=== PATIENT | male | born 1975 | race Hispanic/Latino ===

== ENCOUNTER 2017-06-14 05:55 | Day surgery (SDC) | payer OTHER ==
[2017-06-10 13:56] VITALS: BP 144/81
[~2017-06-14] VITALS: Ht 172.7 cm; Wt 139.2 kg
[2017-06-14] VITALS (13 sets, daily range): BP systolic 115–145; BP diastolic 73–92
[2017-06-14] MEDS: CEFAZOLIN SODIUM 1 GM VIAL IVP SCH ×2 (05:00→07:40)
[~2017-06-14 05:55] MED LIST: ATORVASTATIN PO; BUPROPION PO; METF500T6 PO
[2017-06-14] MEDS ORDERED: SODIUM CHLORIDE 0.9% 1000ML 1,000 ML IV ONE (06:37)
[2017-06-14] MEDS ORDERED: LIDOCAINE HCL-MPF 0.5% 50ML VIAL IJ ONE (06:52)
[2017-06-14] MEDS ORDERED: GLYCOPYRROLATE 0.2 MG/ML 5 ML VIAL ONE (06:54)
[2017-06-14] MEDS ORDERED: DEXAMETHASONE SOD PHOSPHATE 10MG/ML 1ML VIAL ONE (06:54)
[2017-06-14] MEDS ORDERED: PROPOFOL 10 MG/ML 20ML VIAL IV ONE (06:54)
[2017-06-14] MEDS ORDERED: LIDOCAINE PF 2% 5ML ABBOJECT ONE (06:54)
[2017-06-14] MEDS ORDERED: MIDAZOLAM HCL 1 MG/ML 2ML VIAL ONE ×2 (06:54→07:51)
[2017-06-14] MEDS ORDERED: FENTANYL CITRATE PF 50 MCG/1 ML 2ML VIAL ONE ×3 (06:55→08:15)
[2017-06-14] MEDS ORDERED: PHENYLEPHRINE HCL 10 MG/ML 1ML VIAL IV ONE (08:03)
== END 2017-06-14 10:00 | disposition home or self-care (01) ==
LOC: DAH 05:55
PROVIDERS: ATTEND Neurological Surgery
DX: G56.01 Carpal tunnel syndrome, right upper limb (principal); E66.01 Morbid (severe) obesity due to excess calories; E11.9 Type 2 diabetes mellitus without complications
CPT/HCPCS: 64721; 82948 ×2; 93005; A4218; J0690; J1100; J2001; J2250 ×2; J2370; J2704; J3010 ×3; J3490 ×2; J7030

== ENCOUNTER → 2017-12-28 | Outpatient (CLI) | payer OTHER ==
[~2017-12-28] MED LIST changes: +METF-444 PO; -METF500T6 PO
== END | disposition home or self-care (01) ==
LOC: DTH 08:38
PROVIDERS: ATTEND Surgery
DX: E11.9 Type 2 diabetes mellitus without complications (principal); E66.09 Other obesity due to excess calories
CPT/HCPCS: 97803

== ENCOUNTER → 2018-01-11 | Outpatient (CLI) | payer OTHER, SELFPAY | END | disposition home or self-care (01) | LOC: DTH 09:18 | PROVIDERS: ATTEND Surgery | DX: E11.9 Type 2 diabetes mellitus without complications (principal); E66.09 Other obesity due to excess calories | CPT/HCPCS: 97803 ==

== ENCOUNTER → 2018-03-01 | Outpatient (CLI) | payer OTHER | END | disposition home or self-care (01) | LOC: DTH 09:28 | PROVIDERS: ATTEND Surgery | DX: E11.9 Type 2 diabetes mellitus without complications (principal); E66.09 Other obesity due to excess calories | CPT/HCPCS: 97803 ==

== ENCOUNTER → 2018-03-22 | Outpatient (CLI) | payer OTHER | END | disposition home or self-care (01) | LOC: DTH 09:41 | PROVIDERS: ATTEND Surgery | DX: E66.01 Morbid (severe) obesity due to excess calories (principal); E11.9 Type 2 diabetes mellitus without complications | CPT/HCPCS: 97803 ==

== ENCOUNTER → 2018-04-24 | Outpatient (CLI) | payer OTHER ==
--- NOTE | 2018-04-24 10:25 | NUR ---
Bariatric Nutrition Consult: pre-op diet education: Printed materials provided for patient on Nutrition Guidelines for Bariatric Surgery. YAQUELIN reviewed materials in detail with pt and his . Both patient and with multiple nutrition questions, all questions answered by YAQUELIN. Pt has been instructed to begin pre-op diet 1 week before scheduled surgery date. Pt has verbalized understanding diet education. Pt expected to have good dietary compliance before and after surgery. Addendum: 04/24/18 at [address] Amended: Links added.
== END | disposition home or self-care (01) ==
LOC: DTH 08:52
PROVIDERS: ATTEND Surgery
DX: E66.01 Morbid (severe) obesity due to excess calories (principal); E11.9 Type 2 diabetes mellitus without complications
CPT/HCPCS: 97803

== ENCOUNTER 2021-08-02 18:30 | Emergency (ER) | payer OTHER ==
[~2021-08-02] VITALS: Ht 172.7 cm; Wt 88.5 kg
[~2021-08-02 18:30] MED LIST changes: +ATOR10 PO; -ATORVASTATIN PO; +BUPR-74 PO; -BUPROPION PO
[2021-08-02 18:33] VITALS: BP 124/86
[2021-08-02] MEDS ORDERED: IBUPROFEN 600 MG TABLET ONE (20:07)
[2021-08-02] MEDS ORDERED: IBUPROFEN 600 MG TABLET PO ONE (20:30)
== END 2021-08-02 21:33 | disposition home or self-care (01) ==
LOC: EDH 18:30
DX: M54.2 Cervicalgia (principal); M54.6 Pain in thoracic spine; F41.9 Anxiety disorder, unspecified; V49.49XA Driver injured in collision with other motor vehicles in traffic accident, initial encounter; Y93.89 Activity, other specified; Y92.89 Other specified places as the place of occurrence of the external cause; Y99.8 Other external cause status
CPT/HCPCS: 71045; 72125